=== PATIENT | male | born 1995 | race Caucasian/White ===

== ENCOUNTER 2017-10-09 23:14 | Emergency (ER) | payer OTHER ==
[2017-10-10] MEDS ORDERED: Aspirin Low Dose CHEW TAB* 81 MG PO ONE (01:39)
[2017-10-10] MEDS ORDERED: NS 0.9% 1000 ML* 1,000 ML IV ONE (01:39)
[2017-10-10] MEDS ORDERED: Ketorolac INJ* 30 MG/ML 1 ML VIAL IV PUSH ONE (01:43)
[2017-10-10] MEDS ORDERED: LORazepam INJ* 2 MG/ML 1 ML VIAL IV PUSH ONE (01:43)
[2017-10-10 02:42] LABS: Hematocrit 44 % (42-52); Hemoglobin 15.2 g/dl (14.0-18.0); Mean Corpuscular HGB Conc 35 g/dl (31-36); Mean Corpuscular Hemoglobin 30 pg (27-31); Mean Corpuscular Volume 86 fL (80-94); Mean Platelet Volume 8 um3 (7.4-10.4); Red Blood Count 5.12 10^6/ul (4.0-5.4); Red Cell Distribution Width 14 % (10.5-15); White Blood Count 9.9 10^3/ul (3.5-10.8)
[2017-10-10 02:57] LABS: Albumin 4.3 g/dL (3.2-5.2); BUN/Creatinine Ratio 21.1 (8-20); Calcium 9.3 mg/dL (8.6-10.3); EGFR African American 162.1 (>60); Globulin 3.1 g/dL (2-4); Potassium 3.5 mmol/L (3.5-5.0); Total Bilirubin 0.7 mg/dL (0.2-1.0); Total Protein 7.4 g/dL (6.4-8.9)
--- NOTE | 2017-10-10 03:28 | ED ---
Matilda Acosta Thomas, scribed for Jah Onofre MD on 10/10/17 at 0143 . HPI Chest Pain - HPI Summary HPI Summary: The pt is a 22 y/o M presenting to the ED c/o CP that began last night. The pain radiates to his left arm. The pain comes in 5-10 minute episodes. The pain is described as crushing. The pain is rated 4/10. The pain is aggravated by palpation and is alleviated by nothing. 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 Pt additionally c/o feelings of hotness, dizziness, and nausea. Pt denies diaphoresis. The patients father of CHF at approximately 45 years old. - History of Current Complaint Chief Complaint: EDShortnessOfBreath Time Seen by Provider: 10/10/17 01:28 Hx Obtained From: Patient Onset/Duration: Started Days Ago - 1, Still Present Timing: Lasting Minutes - 5-10 Current Severity: Mild Pain Intensity: 4 Pain Scale Used: 0-10 Numeric Chest Pain Radiates: Yes Chest Pain Radiates To:: Arm - L Character: Crushing Aggravating Factor(s): Other: - Palpation Alleviating Factor(s): Nothing Associated Signs and Symptoms: Positive: Other: - Chest pain, SOB, feelings of hotness, dizziness, nausea; NEGATIVE: diaphoresis - Allergy/Home Medications Allergies/Adverse Reactions: Allergies Allergy/AdvReac Type Severity Reaction Status Date / Time No Known Allergies Allergy Verified 10/09/17 23:19 PMH/Surg Hx/FS Hx/Imm Hx Previously Healthy: Yes Endocrine/Hematology History: Denies: Hx Diabetes Cardiovascular History: Denies: Hx Myocardial Infarction Infectious Disease History: No Infectious Disease History: Denies: Traveled Outside the [place] in Last 30 Days - Family History Known Family History: Positive: Other - Father of CHF at approx 45 - Social History Alcohol Use: None Hx Substance Use: No Substance Use Type: Reports: None Hx Tobacco Use: No Smoking Status (MU): Never Smoked Tobacco Review of Systems Positive: Other - Feelings of hotness. Negative: Skin Diaphoresis Positive: Chest Pain Positive: Shortness Of Breath Positive: Nausea Neurological: Other - Dizziness All Other Systems Reviewed And Are Negative: Yes Physical Exam - Summary Physical Exam Summary: VITAL SIGNS: Reviewed. GENERAL: Patient is a well-developed and nourished male who is lying comfortable in the stretcher. Patient is not in any acute respiratory distress. HEAD AND FACE: No signs of trauma. No ecchymosis, hematomas or skull depressions. No sinus tenderness. EYES: PERRLA, EOMI x 2, No injected conjunctiva, no nystagmus. EARS: Hearing grossly intact. Ear canals and tympanic membranes are within normal limits. MOUTH: Oropharynx within normal limits. NECK: Supple, trachea is midline, no adenopathy, no JVD, no carotid bruit, no c- spine tenderness, neck with full ROM. CHEST: Symmetric. There is tenderness to the left chest wall. LUNGS: Clear to auscultation bilaterally. No wheezing or crackles. CVS: Regular rate and rhythm, S1 and S2 present, no murmurs or gallops appreciated. ABDOMEN: Soft, non-tender. No signs of distention. No rebound no guarding, and no masses palpated. Bowel sounds are normal. EXTREMITIES: FROM in all major joints, no edema, no cyanosis or clubbing. NEURO: Alert and oriented x 3. No acute neurological deficits. Speech is normal and follows commands. SKIN: Dry and warm Triage Information Reviewed: Yes Vital Signs On Initial Exam: Initial Vitals Temp Pulse Resp BP Pulse Ox 97.4 F 67 18 140/90 99 10/09/17 23:16 10/09/17 23:16 10/09/17 23:16 10/09/17 23:16 10/09/17 23:16 Vital Signs Reviewed: Yes Diagnostics - Vital Signs Vital Signs Temp Pulse Resp BP Pulse Ox 10/09/17 23:16 97.4 F 67 18 140/90 99 - Laboratory Result Diagrams: 10/10/17 02:25 10/10/17 02:25 Lab Statement: Any lab studies that have been ordered have been reviewed, and results considered in the medical decision making process. - Radiology CXR Xray Interpretation: No Acute Changes - Negative for acute disease Radiology Interpretation Completed By: ED Physician - EKG 01:39 Cardiac Rate: Bradycardia EKG Rhythm: Sinus Bradycardia EKG Interpretation: 59 BPM. Normal axis. Normal interval. No acute ischemic changes. Chest Pain Course/Dx - Course Assessment/Plan: The pt is a 22 y/o M presenting to the ED c/o CP that began last night. The pain radiates to his left arm. The pain comes in 5-10 minute episodes. The pain is described as crushing. The pain is rated 4/10. The pain is aggravated by palpation and is alleviated by nothing. 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 Pt additionally c/o feelings of hotness, dizziness, and nausea. Pt denies diaphoresis. The patients father of CHF at approximately 45 years old. In the ED course the patient was given ASA, Ativan, Toradol, and IV fluids. Bloodwork, EKG, and CXR were obtained. The patient is diagnosed with chest wall pain and anxiety. The patient is instructed to follow up with primary care. Patient is agreeable with this plan. - Diagnoses Provider Diagnoses: Chest wall pain, Anxiety Discharge - Discharge Plan Condition: Stable Disposition: HOME Patient Education Materials: Chest Wall Pain (ED), Anxiety (ED) Referrals: Ashu Whitmore MD [Primary Care Provider] - 3 Days Additional Instructions: Follow up with your primary care physician in three days. Return to the emergency department for any new or worsening symptoms. The documentation as recorded by the Matilda guadalupe Thomas accurately reflects the service I personally performed and the decisions made by me, Jah Onofre MD.
[2017-10-10 04:11] VITALS: BP 133/80
--- NOTE | 2017-10-10 08:36 | RAD ---
Indication: 3 hours chest pain. Shortness of breath. Comparison: No relevant prior exams available on the [facility] P[facility] for comparison. Technique: Upright AP 0148 hours Report: Clear lungs and pleural spaces. Negative for pneumothorax. The heart, pulmonary vasculature, and mediastinal contours are unremarkable. Unremarkable osseous structures and soft tissue contours. IMPRESSION: No evidence for acute intrathoracic disease.
== END 2017-10-10 03:50 | disposition home or self-care (01) ==
LOC: ED 23:14
DX: R07.89 Other chest pain (principal); F41.9 Anxiety disorder, unspecified
CPT/HCPCS: 36415; 71010; 80053; 82550; 84484; 85025; 85379; 85610; 85730; 93005; 96360; 96374; 96375; 99284; A9270-GY; J1885; J2060